=== PATIENT | female | born 2000 | race Two or more races ===

== ENCOUNTER 2024-11-30 01:42 | Emergency (ER) | payer OTHER, MEDICAID ==
[~2024-11-30] VITALS: Ht 167.6 cm; Wt 81.8 kg
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
[2024-11-30] MEDS: KETOROLAC TROMETH 60MG/2ML VIAL IM ONE (03:40)
[2024-11-30] MEDS ORDERED: IBUP-1454 PO (03:52)
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
[2024-11-30 04:43] VITALS: BP 99/44; PULSE 66; RESP 20; TEMP 98; O2SAT 98
== END 2024-11-30 04:50 | disposition home or self-care (01) ==
LOC: ER 01:42 → EDBD 01:42 → ER 04:50
DX: S33.5XXA Sprain of ligaments of lumbar spine, initial encounter (principal); S46.912A Strain of unspecified muscle, fascia and tendon at shoulder and upper arm level, left arm, initial encounter; V43.62XA Car passenger injured in collision with other type car in traffic accident, initial encounter; Y93.89 Activity, other specified; Y92.410 Unspecified street and highway as the place of occurrence of the external cause; Y99.8 Other external cause status
CPT/HCPCS: 72100; 73030; 96372; 99284; J1885